=== PATIENT | female | born 1985 | race Caucasian/White ===

== ENCOUNTER → 2020-10-04 | Outpatient (CLI) | payer OTHER ==
[~2020-10-04] MED LIST: ABILIFY5 MG PO; ATROVENT HFA12.9 GM INH; AVIDOXY100 MG PO; BENTYL 20MG TAB20 MG PO; CARAFATE1 GM/10 ML PO; COLACE 100MG C100 MG PO; CYCLOBENZAPRINE10 MG PO; CYMBALTA60 MG PO; DIFLUCAN200 MG PO; DRONABINOL2.5 MG PO; ELIQUIS5 MG PO; GI COCKTAIL PO; HUMALOG100 UNIT/1 SQ; IMMUNE GLOBULIN IV; KEFLEX CAP 500500 MG PO; LASIX TAB 20 MG20 MG PO; LINZESS290 MCG PO; NEURONTIN300 MG PO; NEURONTIN800 MG PO; OMNICEF 300 MG300 MG PO; PHENERGAN 25 MG25 MG PR; PHENERGAN25 MG/1 M1 IV; PLAQUENIL 200200 MG PO; PRAZOSIN HCL2 MG PO; PREDNISONE 50 M50 MG PO; PROTONIX40 MG PO; PROZAC20 MG PO; REGLAN10 MG PO; THERAGRAN TAB1 EA PO; VANCOMYCIN1.5 GM/300 IV; VENTOLIN HFA 66.7 GM INH; VITAMIN B12-FO1 EACH PO; XARELTO15 PACK PO; ZOFRAN 4 MG4 MG/5 ML IV; [UNRECOGNIZED DRUG - OTHER]
[2020-10-04 16:45] LABS: HEMOGLOBIN 8.5 gm/dl (12.3-15.3); RED BLOOD COUNT 4.13 M/UL (4.00-5.10); WHITE BLOOD COUNT 7.9 K/UL (4.5-11.0)
== END ==
LOC: LAB 15:39
PROVIDERS: Nurse Practitioner
DX: M46.26 Osteomyelitis of vertebra, lumbar region (principal); M54.5 Low back pain; R11.2 Nausea with vomiting, unspecified
CPT/HCPCS: 85025; 86140

== ENCOUNTER 2020-11-27 13:45 | Inpatient (IN) | payer OTHER ==
[~2020-11-27] VITALS: Ht 175.3 cm; Wt 65.8 kg
[~2020-11-27 13:45] MED LIST changes: -CYMBALTA60 MG PO; -DRONABINOL2.5 MG PO; -GI COCKTAIL PO; -IMMUNE GLOBULIN IV; -NEURONTIN800 MG PO; -PRAZOSIN HCL2 MG PO
[2020-11-27 15:09] LABS: HEMOGLOBIN 7.9 gm/dl (12.3-15.3); RED BLOOD COUNT 3.94 M/UL (4.00-5.10); WHITE BLOOD COUNT 6.6 K/UL (4.5-11.0)
[2020-11-27 15:46] LABS: BUN/CREATININE RATIO 9 (0-10)
[2020-11-28] MEDS ORDERED: NEURONTIN800 MG PO (00:32)
[2020-11-28] MEDS ORDERED: CYMBALTA60 MG PO (00:33)
[2020-11-28] MEDS ORDERED: DRONABINOL2.5 MG PO (00:35)
[2020-11-28] MEDS ORDERED: GI COCKTAIL PO (00:50)
[2020-11-28 01:42] LABS: HEMOGLOBIN 8.1 gm/dl (12.3-15.3)
[2020-11-28] MEDS ORDERED: IMMUNE GLOBULIN IV (02:19)
[2020-11-28] MEDS ORDERED: PRAZOSIN HCL2 MG PO (02:25)
[2020-11-28 16:29] LABS: HEMOGLOBIN 7.9 gm/dl (12.3-15.3)
--- NOTE | 2020-11-28 19:35 | NUR ---
1910-ASSESSED PATIENT AND HER MOM AND PATIENT WAS ASKING FOR PAIN MEDICINE. I TOLD THEM THAT PATIENT ONLY HAD TYLENOL THAT THE DILAUDID WAS A ONE TIME DOSE. PATIENT ASKED IF I COULD CALL THE DR. I NOTFIED DR PLAZA AND SHE SAID SHE WOULD LOOK THROUGH THE CHART AND PUT ORDERS IN FOR MEDICINE BUT THAT SHE COULDN'T GIVE ANYMORE NARCOTICS BECAUSE OF PATIENTS GASTROPARESIS. I WAS TALKING TO DR PLAZA ON THE PHONE THE PATIENTS MOTHER CAME OUT AND WAS LISTENING. I TOLD DR PLAZA THE PATIENTS MAIN DIAGNOSIS OF FACIAL NUMBESS ON THE LEFT SIDE AND THE MOM STARTS SAYING HAVE YOU READ HER CHART SHE WAS ADMITTED FOR THROWING UP BLOOD. I EDUACATED MOM AND PATIENT ON NEED TO PUKE IN A BASIN SO WE COULD SEE THE PUKE AND LET THE DRS KNOW IF THERE WAS BLOOD IN IT. SHE SAID SHE COULDN'T MAKE HER PUKE IN A CERTAIN SPOT. PATIENT WAS AGREEABLE. MOM STATED THAT SHE FELT LIKE PATIENT WASN'T GETTING ENOUGH CARE. I TOLD HER THAT DR PLAZA PUT IN AN ORDER FOR TRAMADOL PO AND SHE SAID THAT WAS HARD ON THE STOMACH AND COULD I CALL AND GET SOME TORADOL. DR PLAZA WAS NOTIFIED AGAIN AND SHE STATED THAT TORADAL WAS HARD ON THE STOMACH BECAUSE ITS AN NSAID AND TRAMADOL WASN'T. I ONCE AGAIN EDUCATED PATIENT AND MOM. DR PLAZA PUT IN A ONE TIME DOSE OF DILAUDID FOR PATIENT AND STATED THAT SHE COULDN'T COME TALK TO FAMILY BECAUSE SHE WAS IN THE ER SEEING OTHER PATIENTS. PHYSIOTHERAPY PRACTICE MANAGER MADE AWARE OF THE SITUATION. PATINET AND MOM SAID PROBLEM WAS SOLVED ONE I TOLD THEM ABOUT THE DILAUDID ORDER. THEY ALSO ASKED WHY CORRINA HADN'T BEEN IN TO SEE PATIENT AND I ASKED PROCESS IMPROVEMENT MANAGER AND SHE SAID THAT DR HOUSER WASN'T ON TODAY SO HE WOULD SEE PATIENT TOMORROW.
[2020-11-29 04:25] LABS: HEMOGLOBIN 7.8 gm/dl (12.3-15.3); RED BLOOD COUNT 3.88 M/UL (4.00-5.10); WHITE BLOOD COUNT 5.6 K/UL (4.5-11.0)
[2020-11-29 04:51] LABS: BUN/CREATININE RATIO 10 (0-10)
[2020-11-29 16:21] LABS: HEMOGLOBIN 7.3 gm/dl (12.3-15.3)
[2020-11-30 04:12] LABS: HEMOGLOBIN 7.4 gm/dl (12.3-15.3); RED BLOOD COUNT 3.6 M/UL (4.00-5.10)
[2020-11-30 04:17] LABS: WHITE BLOOD COUNT 7.8 K/UL (4.5-11.0)
[2020-11-30 04:40] LABS: BUN/CREATININE RATIO 10 (0-10)
== END 2020-11-30 16:01 | disposition home or self-care (01) | DRG 393 ==
LOC: ER1 13:45 → MED SURG 4 23:06 → CDU 23:06 → MED SURG 4 23:50 → 2 EAST 11-29 13:46 → MED SURG 4 11-29 13:47
PROVIDERS: Family Medicine; Internal Medicine; ADMIT Internal Medicine
DX: K95.89 Other complications of other bariatric procedure (principal); K25.4 Chronic or unspecified gastric ulcer with hemorrhage; D62 Acute posthemorrhagic anemia; F45.8 Other somatoform disorders; E66.01 Morbid (severe) obesity due to excess calories; F32.9 Major depressive disorder, single episode, unspecified; Z20.822 Contact with and (suspected) exposure to COVID-19; E11.43 Type 2 diabetes mellitus with diabetic autonomic (poly)neuropathy; K31.84 Gastroparesis; F41.9 Anxiety disorder, unspecified; Z95.0 Presence of cardiac pacemaker; Z86.718 Personal history of other venous thrombosis and embolism; Z90.49 Acquired absence of other specified parts of digestive tract; Z98.890 Other specified postprocedural states; Z68.21 Body mass index [BMI] 21.0-21.9, adult; Z88.5 Allergy status to narcotic agent; Z79.899 Other long term (current) drug therapy; Z83.3 Family history of diabetes mellitus
CPT/HCPCS: 36415; 70450; 70496; 70498; 70551; 80048; 80053; 80061; 80307; 81001; 82550; 82553; 82607; 82652; 82728; 82746; 82962; 83036; 83540; 83550; 83605; 83690; 83874; 84439; 84443; 84484; 84550; 85014; 85018; 85025; 92507; 92526; 92610; 93005; 96374; 96375; 97110; 97110-GP-CQ; 97116-GP-CQ; 97162; 97166; 99285; C9113; G0378; J1170; J2405; J2550; J2916; J7030; Q9967; U0002

== ENCOUNTER → 2021-06-12 | Outpatient (CLI) | payer OTHER ==
[~2021-06-12] MED LIST changes: +CYMBALTA60 MG PO; +DRONABINOL2.5 MG PO; +GI COCKTAIL PO; +IMMUNE GLOBULIN IV; +NEURONTIN800 MG PO; +PRAZOSIN HCL2 MG PO
== END ==
LOC: KOH-I 16:00 → CT 16:53
DX: M54.50 Low back pain, unspecified (principal); M51.36 Other intervertebral disc degeneration, lumbar region
CPT/HCPCS: 72131

== ENCOUNTER 2021-11-25 16:56 | Emergency (ER) | payer OTHER ==
[~2021-11-25 16:56] MED LIST changes: +B-121000 MCG PO; +CREON DR 24,001 EACH PO; -CYCLOBENZAPRINE10 MG PO; +CYCLOBENZAPRINE5 MG PO; +CYMBALTA30 MG PO; -CYMBALTA60 MG PO; +DIPHENHYDR50 MG/1 M1 IV; -DRONABINOL2.5 MG PO; +DRONABINOL5 MG PO; +DULOXETINE HCL60 MG PO; +FAMOTIDINE10 MG/1 ML IV; +FUROSEMIDE20 MG PO; -GI COCKTAIL PO; +HYDROCODON-ACE1 EAC3 PO; -IMMUNE GLOBULIN IV; +MAGIC MOUTHWASH PO; +MELATONIN10 M2 PO; +MINIPRESS CAP 11 MG PO; +MIRTAZAPINE30 MG PO; +NICOTINE PATCH1 EAC2 TD; +NURTEC ODT75 MG PO; -PRAZOSIN HCL2 MG PO; +PRAZOSIN HCL5 MG PO; +TYLENOL325 MG PO; +VRAYLAR6 MG PO; -[UNRECOGNIZED DRUG - OTHER]; +[UNRECOGNIZED DRUG - OTHER] IV; +[UNRECOGNIZED DRUG - OTHER] IV
== END 2021-11-26 00:35 | disposition home or self-care (01) ==
LOC: ER1 16:56
DX: T82.594A Other mechanical complication of infusion catheter, initial encounter (principal); Z16.12 Extended spectrum beta lactamase (ESBL) resistance; Z87.440 Personal history of urinary (tract) infections; Z88.5 Allergy status to narcotic agent
CPT/HCPCS: 80202; 96365; 96366; 96375; 99283; J2405; J3370; J7070

== ENCOUNTER → 2021-11-26 | Outpatient (CLI) | payer OTHER | LOC: OPSV 09:33 | DX: T80.211A Bloodstream infection due to central venous catheter, initial encounter (principal); B96.1 Klebsiella pneumoniae [K. pneumoniae] as the cause of diseases classified elsewhere; N39.0 Urinary tract infection, site not specified | CPT/HCPCS: 86140; G0463 ==

== ENCOUNTER → 2021-12-19 | Day surgery (SDC) | payer OTHER | END | disposition home or self-care (01) | LOC: OR 05:17 | DX: Z45.2 Encounter for adjustment and management of vascular access device (principal); K31.84 Gastroparesis; I11.0 Hypertensive heart disease with heart failure; I50.9 Heart failure, unspecified; K21.9 Gastro-esophageal reflux disease without esophagitis; M19.90 Unspecified osteoarthritis, unspecified site; E11.9 Type 2 diabetes mellitus without complications; J41.0 Simple chronic bronchitis; F41.9 Anxiety disorder, unspecified; F32.A Depression, unspecified; F17.210 Nicotine dependence, cigarettes, uncomplicated; Z88.5 Allergy status to narcotic agent; Z79.01 Long term (current) use of anticoagulants; Z79.899 Other long term (current) drug therapy; Z95.0 Presence of cardiac pacemaker; Z72.89 Other problems related to lifestyle | CPT/HCPCS: 71045; 77001; 82962; J0690; J1100; J1642; J2001; J2250; J2405; J2704; J3010 ==